=== PATIENT | female | born 1970 | race Caucasian/White ===

== ENCOUNTER → 2022-12-15 | Outpatient (CLI) | payer BC ==
--- NOTE | 2022-12-15 18:14 | Diagnostic Imaging Report ---
INDICATION: 52-year-old female with capsule endoscopy. COMPARISONS: None. FINDINGS: KUB shows lung bases to be clear. There is gas seen throughout the luminal viscera to the rectum. Multiple phleboliths are seen. There is enteric anastomosis with surgical staple sutures within the distal colon and rectal region. There is a endoscopic capsule projected over the right lower pelvis. Bony abdomen/pelvis is unremarkable. IMPRESSION: Endoscopic capsule is projected over the right lower pelvis. Dictated by: Dictated on workstation # [id number]
== END ==
LOC: RAD 13:08
PROVIDERS: ATTEND Specialist
DX: Z98.890 Other specified postprocedural states (principal)
CPT/HCPCS: 74019